=== PATIENT | female | born 1995 | race Caucasian/White ===

== ENCOUNTER 2024-08-09 16:05 | Emergency (ER) | payer OTHER, SELFPAY ==
[2024-08-09 16:16] VITALS: BP 137/91
[2024-08-09 16:32] LABS: % Basophils 0.2 % (0-2); % Eosinophils 0.8 % (0-6); % Immature Granulocytes 0.2 % (0-0.5); % Lymphocytes 26.3 % (20.5-51.1); % Monocytes 7.2 % (1.7-9.3); % Neutrophils 65.3 % (42.2-75.2); Absolute Lymphocytes 1.3 10^3/uL (1.2-3.4); Absolute Monocytes 0.4 10^3/uL (0.1-0.6); Absolute Neutrophils 3.3 10^3/uL (1.4-6.5); Hematocrit 39.1 % (37.0-47.0); Hemoglobin 13.2 g/dL (12.0-16.0); Mean Corp Hgb Conc. 33.8 g/dL (33.0-37.0); Mean Corpuscular Hgb 27.8 pg (27.0-31.0); Mean Corpuscular Volume 82.5 fL (81.0-99.0); Mean Platelet Volume 10.2 fL (7.4-10.4); Nucleated Red Blood Cells % 0 %; Platelet Count 231 10^3/uL (130-400); Red Blood Cell Count 4.74 10^6/uL (4.20-5.40); Red Cell Dist. Width 12.8 % (11.5-14.5)
[2024-08-09 16:41] LABS: HCG, Serum Qualitative Screen Negative
[2024-08-09 16:42] LABS: INR 1.05
[2024-08-09 16:43] LABS: APTT 36.1 Sec (23.4-35.0)
[2024-08-09 16:58] LABS: Troponin I < 0.012 ng/ml
[2024-08-09 17:08] LABS: ALT (SGPT) 16 U/L (0-35); AST (SGOT) 23 U/L (14-36); Albumin 4.4 g/dl (3.5-5.0); Alkaline Phosphatase 62 U/L (38-126); Blood Urea Nitrogen 9 mg/dl (7-17); Calcium 9.6 mg/dl (8.4-10.2); Carbon Dioxide 26 mmol/L (22-30); Chloride 106 mmol/L (98-107); Glucose 90 mg/dl (70-99); Potassium 4.6 mmol/L (3.5-5.1); Sodium 140 mmol/L (135-145); Total Bilirubin 0.5 mg/dl (0.2-1.3); Total Protein 7.4 g/dl (6.3-8.2); eGFR > 60.00
[2024-08-09 18:41] VITALS: BMI 25.6
[2024-08-09 18:43] VITALS: BP 106/84
[2024-08-09 19:09] LABS: D-Dimer < 0.27 ug/mlFEU (0.00-0.50)
--- NOTE | 2024-08-10 | ED.GENMED ---
History of Present Illness
General
Chief Complaint: Chest Pain
Source: patient
Exam Limitations: none
Time Seen by Provider: 08/09/24 18:27
Nursing documentation reviewed up to this point in time: agreed with
History of Present Illness
History of Present Illness:
Patient to ED with complaint of chest pain. Pain started yesterday. Denies fever/chills, recent illness. NO SOB or cough. Borught to ED by family for eval.
Past History
Past History
ED Past Medical History: None
Review of Systems
Review of Systems
Allergies reviewed?: Yes
All Other Systems: ROS reviewed and negative except as documented in HPI and ROS
Constitutional: Reports no symptoms
EENT: Reports no symptoms
Respiratory: Reports other (worsening chest pain with deep breathing)
Cardiac: Reports chest pain
ABD/GI: Reports no symptoms
Musculoskeletal: Reports no symptoms
Skin: Reports no symptoms
Neurological: Reports no symptoms
Psychiatric: Reports no symptoms
Phy Exam
General Physical Exam
General Presentation: well appearing and no apparent distress
General age: appears stated age
General Skin: warm and dry
General Habitus: normal
General Mental: alert
Cardiovascular Exam
Cardiovascular Exam: regular rate/rhythm and no edema
Pulmonary Exam
Pulmonary Exam: lungs clear, no respiratory distress and chest non tender
Gastrointestinal Exam
Gastrointestinal Exam: non tender and soft
Musculoskeletal Exam
Musculoskeletal Exam: full ROM and neuro vasc intact
Skin Exam
Skin Exam: normal color, warm/dry and no rash
Psychiatric Exam
Psychiatric Exam: normal mood/affect
Scores
Heart Score for Chest Pain Patients
STEMI patient?: Not applicable
Course
Orders/Labs/Results
Orders:
Orders
08/09/24 16:06
Electrocardiogram (*1) Urgent
Reason for Study: Chest Pain
EKG- Treatment ONCE
08/09/24 16:19
Test Result ONCE
08/09/24 16:24
Complete Blood Count/With Diff Urgent
Comprehensive Metabolic Panel Urgent
HCG, Serum Qualitative Screen Urgent
PT/INR [Prothrombin Time] Urgent
PTT Urgent
Troponin I Urgent
08/09/24 18:42
CR Chest - 2 Views Urgent
Comment:
Reason For Exam: left chest pain
08/09/24 18:50
D-Dimer Urgent
Abnormal Lab Results
08/09/24
16:24
APTT 36.1 H Sec
(23.4-35.0)
08/09/24 16:24
08/09/24 16:24
Vital Signs
Initial and Last Documented VS:
Initial Vital Signs
Temp Pulse Resp BP Pulse Ox
98.6 F 104 16 137/91 100
08/09/24 16:16 08/09/24 16:16 08/09/24 16:16 08/09/24 16:16 08/09/24 16:16
Last Documented Vital Signs
Temp Pulse Resp BP Pulse Ox
98.6 F 89 16 106/84 100
08/09/24 16:16 08/09/24 18:43 08/09/24 18:43 08/09/24 18:43 08/09/24 18:43
*Radiology
Radiology exam reviewed: radiology read reviewed
*Pulse Oximetry
Patient hypoxic: no
*Critical Care Note
Total Time (30-74mins, 75-104mins- exclusive of procedures): Not Applicable
Update Note
Update Note:
patient to ED with complaint of chest pain, worse with deep breathing. Pulse ox 99% RA. HRR, VSS, she remains afebrile.cxr neg for pneumonial. DDimer neg. Will discharge home. Recommend ibuprofen prn pain. She was given instructions on s/s to
return to ED and she is agreeable to plan.
ED Attending Note
-
Portions of this chart may have been created with voice recognition software.� Occasional wrong word or��sound alike� substitutions may have occurred due to the inherent limitations of voice recognition software.
Discharge Plan
Departure
Patient Disposition: Home (Routine Discharge)
Date of Disposition: 08/09/24
Time of Disposition: 19:43
Patient with high blood pressure during this ER visit?: No
Condition: Good
Covid-19: Not Applicable
Discharge Problem:
Chest pain
Instructions: Chest Pain PCP Follow Up
Prescriptions:
No Action
No Current Medications
0
Referrals:
Duke Ahumada MD [Family Provider] -
Activity Restrictions/Additional Instructions:
Return to the emergeny department immediately for any changes in /worsening of your symptoms.
Interventions
Interventions:
*Risk Screen - Suicide Last Done: 08/09/24 18:41
*General Assessment Last Done: 08/09/24 18:41
*Neglect/Abuse Screening Last Done: 08/09/24 18:41
*ED- Fall Risk Assessment Last Done: 08/09/24 18:41
*ED COVID-19 Vaccine History Last Done: 08/09/24 18:41
*Nursing Disposition Last Done: 08/09/24 19:55
ED- Cardiac Assessment Last Done: 08/09/24 18:52
Discharge Date and Time
Discharge Date/Time: 08/09/24 19:55
Print Language: GERMAN
== END 2024-08-09 19:55 | disposition home or self-care (01) ==
LOC: EMR 16:05
PROVIDERS: Emergency Medicine; Nurse Practitioner; EMERGENCY PHYSICIAN Emergency Medicine; FAMILY PHYSICIAN Family Medicine
DX: R07.9 Chest pain, unspecified (principal)
CPT/HCPCS: 99285; 71046; 80053; 84484; 84703; 85025; 85379; 85610; 85730; 93005